=== PATIENT | female | born 1975 | race African-American/Black ===

== ENCOUNTER 2019-11-03 06:43 | Emergency (ER) | payer BC ==
[~2019-11-03] VITALS: Ht 175.3 cm; Wt 96.0 kg
[2019-11-03 07:23] VITALS: BP 148/76
[2019-11-03] MEDS ORDERED: LORAZEPAM 1MG TABLET PO ONE (07:45)
[2019-11-03 08:37] LABS: CLARITY URINE CLOUDY (CLEAR); COLOR URINE YELLOW (YELLOW); KETONES URINE NEGATIVE (NEGATIVE); LEUKOCYTE ESTERASE URINE 1+ (NEGATIVE); NITRITE URINE NEGATIVE (NEGATIVE); OCCULT BLOOD URINE 1+ (NEGATIVE); PH URINE 5.5 (4.5-8.0); PROTEIN URINE 1+ (NEGATIVE); SPECIFIC GRAVITY URINE 1.026 (1.005-1.030); UROBILINOGEN URINE 0.2 E.U./dL (0.2-1.0)
== END 2019-11-03 08:55 | disposition home or self-care (01) ==
LOC: ER 06:43
DX: F43.20 Adjustment disorder, unspecified (principal); N39.0 Urinary tract infection, site not specified; F41.9 Anxiety disorder, unspecified
CPT/HCPCS: 81003; 81025; 99283

== ENCOUNTER 2021-01-22 01:23 | Emergency (ER) | payer BC ==
[~2021-01-22] VITALS: Ht 175.3 cm; Wt 100.0 kg
[2021-01-22 01:42] VITALS: BP 164/83
[2021-01-22] MEDS ORDERED: ACET-2708 MT (02:20)
[2021-01-22] MEDS ORDERED: ACETAMINOPHEN 325MG TABLET PO ONE (02:30)
== END 2021-01-22 02:36 | disposition home or self-care (01) ==
LOC: ER 01:23
DX: M54.5 Low back pain (principal); G89.29 Other chronic pain; F41.9 Anxiety disorder, unspecified
CPT/HCPCS: 99282